=== PATIENT | female | born 1950 | race Caucasian/White ===

== ENCOUNTER 2016-03-04 11:05 | Emergency (ER) | payer MEDICARE, OTHER ==
[2016-03-04] MEDS ORDERED: HYDROCODONE/ACETAMINOPHEN 5/325MG TABLET ONE (11:24)
[2016-03-04] MEDS ORDERED: IBUPROFEN 600 MG TABLET ONE (11:24)
--- NOTE | 2016-03-04 11:51 | RAD ---
Exam: Three-view right ankle COMPARISON: None INDICATION: Stepped in a hole, severe right ankle pain. [place] a pop. Finding: AP, lateral and oblique views of the right ankle were obtained. Osteopenia, which lies evaluation for nondisplaced fracture. There is significant soft tissue swelling, most pronounced laterally. Joint effusion is present. There is a very subtle lucency within the medial malleolus only seen on the oblique view, without apparent cortical disruption. Nondisplaced fracture cannot be excluded. Note additional concern for fracture is identified. Ankle mortise intact. IMPRESSION: Possible nondisplaced fracture of the medial malleolus. No additional concern for fracture is identified. Pronounced lateral soft tissue swelling and joint effusion. Findings were discussed with Dr. Lynn 1145 hours 03/04/2016.
== END 2016-03-04 12:29 | disposition home or self-care (01) ==
LOC: ED 11:05
DX: S93.401A Sprain of unspecified ligament of right ankle, initial encounter (principal); W17.2XXA Fall into hole, initial encounter; Y92.9 Unspecified place or not applicable
CPT/HCPCS: 73610; 99283 ×2; A9270 ×2